=== PATIENT | female | born 2000 | race African-American/Black ===

== ENCOUNTER 2020-08-22 08:11 | Inpatient (IN) | payer MEDICAID ==
[~2020-08-22] VITALS: Ht 158.8 cm; Wt 49.1 kg
[2020-08-22] MEDS ORDERED: HALOPERIDOL 5 MG TABLET PO PRN (08:30)
[2020-08-22] MEDS ORDERED: ZOLPIDEM TARTRATE 10 MG TABLET PO PRN (08:30)
[2020-08-22] MEDS ORDERED: INFLUENZA VIRUS VACCINE QVS 2020-21 (6MO+)/PF 60 MCG/0.5 ML SYRINGE IM ONE (13:15)
[2020-08-22 16:49] VITALS: BP 104/60
[2020-08-22 18:00] VITALS: BP 115/81
[2020-08-22] MEDS: LORazepam 2 MG TABLET PO PRN (18:08)
[2020-08-23 06:06] VITALS: BP 112/64
[2020-08-23 08:17] VITALS: BP 105/61
[2020-08-23] MEDS: NICOTINE 21 MG/24 HOUR PATCH TD SCH (08:36)
[2020-08-23] MEDS: RisperiDONE 2 MG TABLET PO SCH ×2 (08:36→16:31)
[2020-08-23] MEDS: LORazepam 2 MG TABLET PO PRN (12:34)
[2020-08-23 16:29] VITALS: BP 115/69
[2020-08-24 00:46] VITALS: BP 110/62
[2020-08-24] MEDS: RisperiDONE 2 MG TABLET PO SCH (08:27)
[2020-08-24] MEDS: NICOTINE 21 MG/24 HOUR PATCH TD SCH (08:28)
[2020-08-24] MEDS ORDERED: RISP2TAB45 PO (09:02)
[2020-08-25 08:43] LABS: APPEARANCE,URINE CLEAR (CLEAR); BILIRUBIN,URINE NEGATIVE (NEGATIVE); GLUCOSE, URINE (UA) NEGATIVE (NEGATIVE); KETONES,URINE NEGATIVE (NEGATIVE); LEUKOCYTE ESTERASE ,URINE NEGATIVE (NEGATIVE); NITRATE,URINE NEGATIVE (NEGATIVE); OCCULT BLOOD,URINE SMALL (NEGATIVE); PROTEIN,URINE NEGATIVE (NEGATIVE); UROBILINOGEN,URINE 0.2 mg/dL (<=1.0)
[2020-08-25 08:50] LABS: AMPHET/METH SCREEN,URINE NEGATIVE (NEGATIVE); BARBITURATE SCREEN, URINE NEGATIVE (NEGATIVE); BENZODIAZEPINES SCREEN,URINE NEGATIVE (NEGATIVE); CANNABINOID SCREEN,URINE POSITIVE (NEGATIVE); COCAINE SCREEN,URINE POSITIVE (NEGATIVE); METHADONE SCREEN, URINE NEGATIVE (NEGATIVE); OPIATE SCREEN,URINE NEGATIVE (NEGATIVE)
[2020-08-25 08:53] LABS: PHENCYCLIDINE SCREEN,URINE NEGATIVE (NEGATIVE)
[2020-08-25 09:40] LABS: BACTERIA,URINE None Seen /HPF (None Seen); WBC,URINE None Seen /HPF (0-5)
[2020-08-25 09:41] LABS: SQUAMOUS EPITHELIAL CELL,UR Few /LPF (None Seen)
== END 2020-08-24 09:35 | disposition home or self-care (01) | DRG 750 ==
LOC: B2S 10:48
PROVIDERS: ADMIT Psychiatry & Neurology Psychiatry; ATTEND Psychiatry & Neurology Psychiatry
DX: F20.0 Paranoid schizophrenia (principal); F12.90 Cannabis use, unspecified, uncomplicated; G47.00 Insomnia, unspecified; K21.9 Gastro-esophageal reflux disease without esophagitis; F41.9 Anxiety disorder, unspecified; Z28.21 Immunization not carried out because of patient refusal
CPT/HCPCS: 80307